=== PATIENT | male | born 1990 | race Caucasian/White ===

== ENCOUNTER 2021-03-06 20:10 | Emergency (ER) | payer SELFPAY | END 2021-03-07 04:10 | disposition home or self-care (01) | LOC: JD.ED 20:10 | DX: Z77.098 Contact with and (suspected) exposure to other hazardous, chiefly nonmedicinal, chemicals (principal); Z72.0 Tobacco use | CPT/HCPCS: 36415; 36600; 82375; 82803; 84484; 93005; 99283-25 ==